=== PATIENT | female | born 1995 ===

== ENCOUNTER → 2022-11-06 15:44 | Outpatient (CLI) | payer BC, SELFPAY ==
--- NOTE | ~2022-11-06 | US_ITS ---
Pelvic ultrasound. Clinical History: Dysmenorrhea Technique: Realtime transabdominal scanning of the pelvis was performed. Color flow Doppler and Doppl er spectral analysis were performed. Findings: The uterus is anteverted, and measures 7.9 x 3.9 x 6.0 cm. The endometrial stripe has a th ickness of 8 mm. No focal mass is identified. The right ovary measures 3.4 x 2.6 x 3.3 cm. No significant right ovarian or adnexal mass is seen. The left ovary measures 3.3 x 2.6 x 3.2 cm. No significant left ovarian or adnexal mass is seen. There is no evidence of free fluid in the cul de sac. Impression: No significant abnormality seen. Reviewed, dictated and finalized at [facility]. Impression: No significant abnormality seen.
== END ==
PROVIDERS: PCP Nurse Practitioner; Visit Provider Nurse Practitioner
DX: N94.6 Dysmenorrhea, unspecified (principal)
CPT/HCPCS: 76856